=== PATIENT | female | born 1950 | race Caucasian/White ===

== ENCOUNTER → 2017-12-23 | Outpatient (CLI) | payer OTHER | LOC: FIMAGING 09:32 | PROVIDERS: ATTEND Family Medicine | DX: Z13.820 Encounter for screening for osteoporosis (principal); M85.831 Other specified disorders of bone density and structure, right forearm; Z85.42 Personal history of malignant neoplasm of other parts of uterus; R10.31 Right lower quadrant pain; Z78.0 Asymptomatic menopausal state; R16.0 Hepatomegaly, not elsewhere classified ==